=== PATIENT | male | born 1985 | race Caucasian/White ===

== ENCOUNTER 2019-01-21 05:28 | Day surgery (SDC) | payer OTHER ==
[~2019-01-21] VITALS: Ht 167.6 cm; Wt 88.5 kg
[~2019-01-21 05:28] MED LIST: NEURONTIN 300300 MG PO; VOLTAREN25 MG PO
[2019-01-21 06:18] VITALS: BP 119/71; Ht 167.6 cm; Wt 88.5 kg
--- NOTE | 2019-01-21 11:54 | NUR ---
1034-REC'D FROM RR, DROWSY EASILY AROUSED WITH VERBAL STIMULI.BANDAID X 5 CDI. VSS. DENIES COMPLAINTS. IV PATENT TO RIGHT HAND PATENT AT K[facility]. AT BEDSIDE, CL IN EASY REACH.
--- NOTE | 2019-01-21 11:56 | NUR ---
1100-FULL LIQUID TRAY TO ROOM. DRESSINGS CONTINUE TO BE CDI.
--- NOTE | 2019-01-21 11:57 | NUR ---
1145-DISCHARGE CRITERIA MET. REVIEWED WITH PT AND SPOUSE,VERBALIZED UNDERSTANDING. IV REMOVED FROM RIGHT HAND WITH CATH INTACT. DISPOSED INTO SHARPS CONTAINER. ESCORTED OUT VIA W/C WITHOUT COMPLAINTS, QUESTIONS OR CONCERNS WITH DISCHARGE INSTRUCTIONS AND SCRIPT IN HAND.
--- NOTE | 2019-01-26 15:10 | OP ---
PATIENT NAME: SIERRA CAVAZOS MEDICAL RECORD: [id number] :81 LOCATION:[facility] ADMISSION DATE: SURGEON: NATALIA ASTORGA MD DATE OF OPERATION: 01/21/2019 PREOPERATIVE DIAGNOSIS: Multiple lipomas. POSTOPERATIVE DIAGNOSIS: Multiple lipomas. PROCEDURE: Excision of 8 subcutaneous lipomas. SURGEON: Natalia Astorga MD SALES ENGINEERING MANAGER: None. BLOOD LOSS: Minimal. ANESTHESIA: General. COMPLICATIONS: None. I saw the patient in the holding area. In the presence of a nurse, the patient was able to sit up, roll from side to side, and ensure that all the lipomas that he wanted removed. I marked these with a magic marker. I asked him if all the lipomas that he wanted removed were marked. He stated that they were. The risk, possible complications and alternatives to the procedure were explained to the patient. He elects to proceed. The discussion specifically included the possibility of infection or that the lipomas could regrow. OPERATIVE COURSE: The patient was conveyed to the operating room electively on 01/21/2019. General anesthesia was induced by the anesthesia staff. The patient was placed in the lateral position. The back and flank was sterilely prepped and draped as was a portion of the chest. Through small incisions, the lipomas were removed in their entireties. Additional surrounding connective tissue was excised in a piecemeal fashion in order to prevent the lipomas from recurring. The incisions were closed with interrupted intracuticular 3-0 Vicryls and then benzoin and Steri-Strips. The patient was then turned on to the lateral position on the opposite side. The opposite back and flank was sterilely prepped and draped. Through small incisions, the lipomas were removed in their entireties. Surrounding connective tissue was excised as well in order to prevent the lipomas from recurring. Benzoin and Steri-Strips were applied. The patient was then extubated and conveyed to the post-anesthesia care unit where he was in stable condition. He will be dismissed home with a narcotic analgesia. TRANSINT:[id number] Voice Confirmation ID: [id number] DOCUMENT ID: [id number] OPERATIVE REPORT [id number] SIERRA CAVAZOSNATALIA WALKER MD at 0483 CC: [id number] DICTATION DATE: 01/26/19 1307 MANAGER COMMUNITY DEVELOPMENT: 01/26/19 1317 [facility] 01/21/19 [facility] [address] [facility] [place] [id number]
== END 2019-01-21 11:45 | disposition home or self-care (01) ==
LOC: D.OPS 05:28 → D.PAN 08:00 → D.OPS 08:00
PROVIDERS: ATTEND Surgery
DX: D17.1 Benign lipomatous neoplasm of skin and subcutaneous tissue of trunk (principal)